=== PATIENT | female | born 1955 | race Caucasian/White ===

== ENCOUNTER → 2023-02-20 | Outpatient (CLI) | payer MEDICARE ==
--- NOTE | 2023-02-26 07:18 | MM ---
Reason for Exam: Screening (asymptomatic). Last mammogram was performed 1 year(s) and 4 month(s) ago. Patient History: Menarche at age 15. First Full-Term at age 20. Postmenopausal. Hormonal Contraceptives for 1 year from age 25 until age 25. Mother had breast cancer, age 70. Risk Values: Rolanda 5 year model risk: 2.8%. NCI Lifetime model risk: 10.0%. Prior Study Comparison: 11/05/1994 Screening Mammogram, Unknown. 11/04/1996 Screening Mammogram, Unknown. 03/07/1998 Bilateral Screening Mammogram, [facility]. 06/12/1999 Bilateral Screening Mammogram, [facility]. 07/01/2000 Bilateral Screening Mammogram, [facility]. 07/15/2001 Bilateral Screening Mammogram, [facility]. 09/16/2003 Bilateral Screening Mammogram, [facility]. 09/13/2004 Bilateral Screening Mammogram, [facility]. 10/05/2005 Bilateral Screening Mammogram, [facility]. 10/11/2005 Left Diagnostic Mammogram, [facility]. 05/20/2006 Left Diagnostic Mammogram, [facility]. 12/16/2006 Bilateral Screening Mammogram, [facility]. 07/07/2008 Bilateral Screening Mammogram, [facility]. 01/06/2019 Bilateral Screening Mammogram, [facility]. 05/03/2020 Bilateral Screening Mammogram, [facility]. 10/13/2021 Bilateral Screening Mammogram, [facility]. Tissue Density: The breast tissue is heterogeneously dense. This may lower the sensitivity of mammography. Findings: Analyzed By CAD. Right breast: Asymmetry 10.4 cm from the nipple measuring 7 mm which is laterally at middle depth. An additional area 5.5 cm from the nipple measuring 18 mm slightly medial/posterior nipple line. Left breast: There is no suspicious group of microcalcifications or new suspicious mass in either breast. Overall Assessment: Incomplete: need additional imaging evaluation, BI-RAD 0 Management: Diagnostic Mammogram of the right breast. Diagnostic Breast Ultrasound of the right breast. Diagnostic right breast mammogram with ultrasound if findings persist, [facility] will attempt to contact patient to return for supplemental views and ultrasound if indicated. Patient should continue monthly self-breast exams. A clinical breast exam by your physician is recommended on an annual basis. This exam should not preclude additional follow-up of suspicious palpable abnormalities. Note on Rolanda scores and lifetime risk: 1. A Rolanda score greater than 3% is considered moderate risk. If this is the case, consider specialist referral to assess eligibility for a risk reducing agent. 2. If overall lifetime risk for the development of breast cancer is 20% or higher, the patient may qualify for future screening with alternating mammogram and breast MRI. Electronically signed and approved by: Myke Andres DO
== END | disposition home or self-care (01) ==
LOC: RADMAMWWP 07:53
PROVIDERS: ATTEND Family Medicine
DX: Z12.31 Encounter for screening mammogram for malignant neoplasm of breast (principal); Z78.0 Asymptomatic menopausal state; Z80.3 Family history of malignant neoplasm of breast
CPT/HCPCS: 77067

== ENCOUNTER → 2023-02-27 | Outpatient (CLI) | payer MEDICARE ==
--- NOTE | 2023-02-27 08:39 | MM ---
Reason for Exam: Additional evaluation requested from abnormal screening. Last screening mammogram was performed less than 1 month ago. Patient History: Menarche at age 15. First Full-Term at age 20. Postmenopausal. Hormonal Contraceptives for 1 year from age 25 until age 25. Mother had breast cancer, age 70. Risk Values: Rolanda 5 year model risk: 2.8%. NCI Lifetime model risk: 10.0%. Prior Study Comparison: 03/07/1998 Bilateral Screening Mammogram, [facility]. 06/12/1999 Bilateral Screening Mammogram, [facility]. 10/05/2005 Bilateral Screening Mammogram, [facility]. 10/11/2005 Left Diagnostic Mammogram, [facility]. 05/20/2006 Left Diagnostic Mammogram, [facility]. 12/16/2006 Bilateral Screening Mammogram, [facility]. 07/07/2008 Bilateral Screening Mammogram, [facility]. 01/06/2019 Bilateral Screening Mammogram, [facility]. 05/03/2020 Bilateral Screening Mammogram, [facility]. 10/13/2021 Bilateral Screening Mammogram, [facility]. 02/20/2023 Bilateral MG screening mammo w CAD, [facility]. Tissue Density: Right: The breast tissue is heterogeneously dense. This may lower the sensitivity of mammography. Findings: Analyzed By CAD. 2 areas of nodular asymmetric density medially in the right breast anterior to middle depth incompletely dispersed on spot 3-D cc views. These measure up to 8 mm. Further ultrasound evaluation is recommended. The lateral asymmetric density does not persist. Overall Assessment: Incomplete: need additional imaging evaluation, BI-RAD 0 Management: Diagnostic Breast Ultrasound of the right breast. 1:00 to 5:00. Results were given to the patient verbally at the time of exam. Electronically signed and approved by: Ally Cox M.D. Radiologist
--- NOTE | 2023-02-27 08:54 | USB ---
Reason for Exam: Additional evaluation requested from abnormal screening. Patient History: Menarche at age 15. First Full-Term at age 20. Postmenopausal. Hormonal Contraceptives for 1 year from age 25 until age 25. Mother had breast cancer, age 70. Risk Values: Rolanda 5 year model risk: 2.8%. NCI Lifetime model risk: 10.0%. Technique: Method: Targeted. Prior Study Comparison: 05/03/2020 Bilateral Screening Mammogram, [facility]. 10/13/2021 Bilateral Screening Mammogram, [facility]. 02/20/2023 Bilateral MG screening mammo w [facility], [facility]. Findings: The medial section of the breast of the right breast, the axilla of the right breast and the retroareolar of the right breast were scanned. Targeted ultrasound medial aspect of the right breast from 1:00 to 5:00 including the subareolar region and axilla. No solid or cystic lesion is seen. No axillary lymphadenopathy or duct ectasia. Overall Assessment: Probably benign, BI-RAD 3 Management: Diagnostic Mammogram of the right breast in 6 months. A clinical breast exam by your physician is recommended on an annual basis and results should be correlated with mammographic findings. This exam should not preclude additional follow-up of suspicious palpable abnormalities. Results were given to the patient verbally at the time of exam. Electronically signed and approved by: Ally Cox M.D. Radiologist
== END | disposition home or self-care (01) ==
LOC: RADMAMWWP 07:39
PROVIDERS: ATTEND Family Medicine
DX: N64.89 Other specified disorders of breast (principal); R92.8 Other abnormal and inconclusive findings on diagnostic imaging of breast; Z78.0 Asymptomatic menopausal state; Z80.3 Family history of malignant neoplasm of breast
CPT/HCPCS: 77065; 76642; G0279; 77061

== ENCOUNTER → 2024-02-12 | Outpatient (CLI) | payer MEDICARE ==
--- NOTE | 2024-02-12 07:45 | MM ---
Reason for Exam: Clinical finding. Last screening mammogram was performed 12 month(s) ago. Patient History: Menarche at age 15. First Full-Term at age 20. Postmenopausal. Hormonal Contraceptives for 1 year from age 25 until age 25. Mother had breast cancer, age 70. Risk Values: Rolanda 5 year model risk: 2.9%. NCI Lifetime model risk: 9.7%. Prior Study Comparison: 05/03/2020 Bilateral Screening Mammogram, [facility]. 10/13/2021 Bilateral Screening Mammogram, [facility]. 02/20/2023 Bilateral MG screening mammo w CAD, [facility]. 02/27/2023 Right MG 3D work up w/cad RT, [facility]. 02/27/2023 Right US breast workup limited RT, [facility]. Tissue Density: There are scattered areas of fibroglandular density. Findings: Analyzed By CAD. 2 areas of medial asymmetric density right cc view are redemonstrated, unchanged for a year. The more lateral asymmetric density on the right is less defined presently compatible with superimposition shadow. Otherwise, no significant change. Overall Assessment: Probably benign, BI-RAD 3 Management: Diagnostic Mammogram of both breasts in 1 year. For a total two-year follow-up right breast and annual exam left breast. Results were given to the patient verbally at the time of exam. Patient should continue monthly self-breast exams. A clinical breast exam by your physician is recommended on an annual basis. This exam should not preclude additional follow-up of suspicious palpable abnormalities. Note on Rolanda scores and lifetime risk: 1. A Rolanda score greater than 3% is considered moderate risk. If this is the case, consider specialist referral to assess eligibility for a risk reducing agent. 2. If overall lifetime risk for the development of breast cancer is 20% or higher, the patient may qualify for future screening with alternating mammogram and breast MRI. Electronically signed and approved by: Ally Cox M.D. Radiologist
--- NOTE | 2024-02-12 15:57 | BD ---
EXAMINATION TYPE: Axial Bone Density DATE OF EXAM: 02/12/2024 CLINICAL HISTORY: 68 years old Female. ICD-10 CODE: M81.8 OTHER OSTEOPOROSIS Height: 5 ft 3 in Weight: 224 FRAX RISK QUESTIONS: Alcohol (3 or more units per day): no Family History (Parent hip fracture): no Glucocorticoids (More than 3mos): no (Ex: prednisone, prednisolone, methylprednisolone, dexamethasone, and hydrocortisone). History of Fracture in Adulthood: no Secondary Osteoporosis: no 1. Type 1 Diabetes: no 2. Hyperthyroidism: no 3. Menopause before 45: no 4. Malnutrition: no 5. Chronic liver disease: no Rheumatoid Arthritis: no Current Tobacco Use: no RISK FACTORS HISTORY OF: Surgery to Spine/Hip(right/left)/Wrist (right/left): none MEDICATIONS: Thyroid Medications: none Osteoporosis Medications: unsure EXAM MEASUREMENTS: Bone mineral densitometry was performed using the [employer]. Bone mineral density as measured about the Lumbar spine is: ----- L1-L4(G/cm2): 1.046 T Score Values are as follows: ----- L1: -1.5 ----- L2: -1.9 ----- L3: -0.5 ----- L4: -0.8 ----- L1-L4: -1.1 Z Score Values are as follows: ----- L1: -1.1 ----- L2: -1.4 ----- L3: -0.1 ----- L4: -0.4 ----- L1-L4: -0.7 Bone mineral density has: increased 2.8 % since study of: 2006 Bone mineral density about the R hip (g/cm2): 0.809 Bone mineral density about the L hip (g/cm2): 0.781 T Score values are as follows: -----R Neck: -1.6 -----L Neck: -1.9 -----R Total: -0.2 -----L Total: -0.4 Z Score values are as follows: -----R Neck: -0.8 -----L Neck: -1.0 -----R Total: 0.3 -----L Total: 0.1 Bone mineral density has: decreased -10.2 % since study of: 2006 FRAX%s: The graph provided illustrates a 9.6 % chance for a major osteoporotic fx and a 1.4 % chance for the hips probability for fx in 10 years time. IMPRESSION: Osteopenia (T Score between -2.5 and -1). There is slightly increased risk of fracture and the patient may be considered for treatment. Re-Screen 2-5 years. NOTE: T-SCORE=SD OF THE YOUNG ADULT MEAN.
== END | disposition home or self-care (01) ==
LOC: RADMAMWWP 07:05
PROVIDERS: ATTEND Family Medicine
DX: R92.2 Inconclusive mammogram (principal); M85.89 Other specified disorders of bone density and structure, multiple sites; M81.8 Other osteoporosis without current pathological fracture; Z78.0 Asymptomatic menopausal state; Z80.3 Family history of malignant neoplasm of breast
CPT/HCPCS: 77080; 77066; G0279; 77062

== ENCOUNTER → 2024-03-26 | Outpatient (CLI) | payer MEDICARE ==
--- NOTE | 2024-03-27 14:51 | XR ---
EXAMINATION TYPE: XR Hip Complete RT DATE OF EXAM: 03/26/2024 4:42 PM CLINICAL INDICATION:Female, 68 years old with history of M25.551 PAIN IN HIP; [facility] COMPARISON: None. TECHNIQUE: XR Hip Complete RT; hip was examined in the frontal and lateral projections FINDINGS: No evidence for acute process, joint dislocation or significant soft tissue swelling. Osteo phyte formation of the superior acetabulum of the hip. There is mild joint space narrowing. IMPRESSION: 1. No evidence for acute process. 2. Mild hip osteoarthrosis.
== END | disposition home or self-care (01) ==
LOC: RADXRMAIN 16:19
PROVIDERS: ATTEND Family Medicine
DX: M16.11 Unilateral primary osteoarthritis, right hip (principal)
CPT/HCPCS: 73502

== ENCOUNTER → 2025-02-16 | Outpatient (CLI) | payer MEDICARE ==
--- NOTE | 2025-02-16 07:39 | US ---
EXAMINATION TYPE: US abdomen limited DATE OF EXAM: 02/16/2025 COMPARISON: NONE CLINICAL INDICATION: Female, 69 years old with history of K80.50 CALCULUS OF BILE DUCT W/O R92.2 INCO NCLUSIVE; Right shoulder pain, no abdominal pain per pt. Rule out gallstones TECHNIQUE: Grayscale and color Doppler imaging of the right upper quadrant was performed. FINDINGS: EXAM MEASUREMENTS: Liver Length: 15.0 cm Gallbladder Wall: 0.27 cm CBD: 0.41 cm Right Kidney: 7.5 x 3.1 x 2.6 cm [employer] NOTES: Pancreas: parts seen appear wnl. Duct measuring 3mm Liver: heterogeneous and upper limits of normal Gallbladder: echogenic foci seen in neck of GB. Appeared to be mobile Evidence for sonographic Paulino's sign: No CBD: appears wnl Right Kidney: appears atrophic Suboptimal exam. Heterogeneous hyperechoic appearance of the liver. This limits evaluation for focal masses. Single mobile gallstone in gallbladder. No pericholecystic fluid or abnormal gallbladder wall thickening. No biliary dilatation. Atrophied right kidney without hydronephrosis is present. IMPRESSION: Suboptimal study. Single gallstone without sonographic evidence for acute cholecystitis. [facility], , 02/16/2025 7:36 AM
--- NOTE | 2025-02-16 12:23 | MM ---
Reason for Exam: Follow-up at short interval from prior study. Last screening mammogram was performed 12 month(s) ago. Patient History: Menarche at age 15. First Full-Term at age 20. Postmenopausal. Hormonal Contraceptives for 1 year from age 25 until age 25. Mother had breast cancer, age 70. Risk Values: Rolanda 5 year model risk: 2.9%. NCI Lifetime model risk: 9.3%. Tissue Density: There are scattered areas of fibroglandular density. Findings: Analyzed By CAD. Stable nodular densities right breast medial aspect on CC view. No new suspicious masses, calcifications or distortions. Overall Assessment: Benign, BI-RAD 2 Management: Screening Mammogram of both breasts in 1 year. Results were given to the patient verbally at the time of exam. Patient should continue monthly self-breast exams. A clinical breast exam by your physician is recommended on an annual basis. This exam should not preclude additional follow-up of suspicious palpable abnormalities. Note on Rolanda scores and lifetime risk: 1. A Rolanda score greater than 3% is considered moderate risk. If this is the case, consider specialist referral to assess eligibility for a risk reducing agent. 2. If overall lifetime risk for the development of breast cancer is 20% or higher, the patient may qualify for future screening with alternating mammogram and breast MRI. [facility], , 02/16/2025 7:55 AM. Electronically signed and approved by: Myke Andres DO
== END | disposition home or self-care (01) ==
LOC: RADUSWWP 06:57
PROVIDERS: ATTEND Family Medicine
DX: K80.50 Calculus of bile duct without cholangitis or cholecystitis without obstruction (principal); R92.2 Inconclusive mammogram; K80.20 Calculus of gallbladder without cholecystitis without obstruction; R92.323 Mammographic fibroglandular density, bilateral breasts; Z78.0 Asymptomatic menopausal state; Z80.3 Family history of malignant neoplasm of breast; Z92.0 Personal history of contraception
CPT/HCPCS: 77066; 76705; G0279; 77062

== ENCOUNTER → 2025-02-17 | Outpatient (CLI) | payer MEDICARE ==
--- NOTE | 2025-02-17 09:18 | NM ---
EXAMINATION TYPE: NM hepatobiliary w CCK DATE OF EXAM: 02/17/2025 COMPARISON: US Abdomen limited 02/16/2025 CLINICAL INDICATION: Female, 69 years old with history of K80.50 CALCULUS OF BILE DUCT W/O CHOLANGITI S OR CH; TECHNIQUE: After the intravenous administration of 5.2 mCi Tc 99m Mebrofenin hepatobiliary scintigrap hy is performed. Immediate images post injection. FINDINGS: There is satisfactory initial accumulation of tracer by the liver. The gallbladder is visualized wit hin 15 minutes. The small bowel activity is noted within 25 minutes. At one hour CCK was administer ed, patient was injected with 2.04 mcg of Kinevac, and gallbladder ejection fraction is calculated at 9 %, diminished from the normal range. IMPRESSION: Abnormal study, Findings are consistent with gallbladder hypokinesia. Advise surgical re ferral. [facility], , 02/17/2025 9:15 AM
== END | disposition home or self-care (01) ==
LOC: RADNMMAIN 06:50
PROVIDERS: ATTEND Family Medicine
DX: K80.50 Calculus of bile duct without cholangitis or cholecystitis without obstruction (principal)
CPT/HCPCS: 78227; A9537; J2805